=== PATIENT | female | born 1970 | race Two or more races ===

== ENCOUNTER 2019-06-12 08:12 | Emergency (ER) | payer OTHER ==
[~2019-06-12] VITALS: Ht 162.6 cm; Wt 80.5 kg
--- NOTE | 2019-06-12 10:26 | NUR ---
pt resting comfortably in room. lab in room now.
[2019-06-12 10:31] LABS: BASOPHILS # (AUTO) 0.02 x10^3/uL (0-0.1); BASOPHILS % (AUTO) 0 % (0-1); EOSINOPHILS # (AUTO) 0.04 x10^3/uL (0-0.4); EOSINOPHILS % (AUTO) 1 % (1-7); LYMPHOCYTES # (AUTO) 1.08 x10^3/uL (1-3.4); LYMPHOCYTES % (AUTO) 15 % (22-44); MD NO; MEAN CORPUSCULAR HEMOGLOBIN 27.2 pg (27.0-34.8); MEAN CORPUSCULAR HGB CONC 32.7 g/dL (32.4-35.8); MEAN CORPUSCULAR VOLUME 83.1 fL (80-100); MONOCYTES # (AUTO) 0.42 x10^3/uL (0.2-0.8); MONOCYTES % (AUTO) 6 % (2-9); NEUTROPHILS # (AUTO) 5.48 x10^3/uL (1.8-6.8); NEUTROPHILS % (AUTO) 78 % (42-75); PLATELET COUNT 293 x10^3/uL (130-400); RED BLOOD COUNT 3.78 x10^6/uL (3.82-5.3); RED CELL DISTRIBUTION WIDTH 15.7 % (9.6-15.2)
--- NOTE | 2019-06-12 10:32 | NUR ---
poc is orthostatic bps
--- NOTE | 2019-06-12 10:33 | NUR ---
pt up to restroom. ambulates with a steady gait.
[2019-06-12 10:42] LABS: ALANINE AMINOTRANSFERASE 18 U/L (12-78); ALBUMIN 3.2 g/dL (3.4-5.0); ANION GAP 8 mmol/L (5-15); CALCIUM 8.2 mg/dL (8.5-10.1); CHLORIDE 104 mmol/L (98-107)
[2019-06-12 10:47] LABS: ALKALINE PHOSPHATASE 91 U/L (45-117); BILIRUBIN,TOTAL 0.4 mg/dL (0.2-1.0)
--- NOTE | 2019-06-12 11:07 | NUR ---
RECEIVED REPORT FROM JOSE MOTA, ASSUMED CARE. IV PLACE AND FLUIDS STARTED PER MD VERBAL ORDER
[2019-06-12] MEDS ORDERED: SODIUM CHLORIDE 0.9% 1,000ML IVBOLUS ONE (11:30)
[2019-06-12] MEDS ORDERED: SODIUM CHLORIDE FLUSH 10ML SYR IVF ONE (11:30)
--- NOTE | 2019-06-12 11:53 | NUR ---
FLUIDS COMPLETE. AWAITING RECHECK AT THIS TIME
[2019-06-12 11:54] VITALS: BP 145/83
[2019-06-12 13:49] LABS: INTERNATIONAL NORMALIZED RATIO 0.99 (0.93-1.1); PROTHROMBIN TIME 10.5 Seconds (9.6-11.5)
== END 2019-06-12 12:50 | disposition home or self-care (01) ==
LOC: ED 12:44
DX: N92.4 Excessive bleeding in the premenopausal period (principal); N92.1 Excessive and frequent menstruation with irregular cycle; R42 Dizziness and giddiness
CPT/HCPCS: 36415; 76830; 80053; 84703; 85025; 85610; 96360; 99284; J7030

== ENCOUNTER 2019-06-13 09:10 | Emergency (ER) | payer OTHER ==
[~2019-06-13] VITALS: Ht 162.6 cm; Wt 79.6 kg
--- NOTE | 2019-06-13 10:16 | NUR ---
RENT AND MISCELLANEOUS REMITTANCE CLERK: PT TO ROOM FROM LOBBY
[2019-06-13 10:41] LABS: BASOPHILS # (AUTO) 0.02 x10^3/uL (0-0.1); BASOPHILS % (AUTO) 0 % (0-1); EOSINOPHILS # (AUTO) 0.04 x10^3/uL (0-0.4); EOSINOPHILS % (AUTO) 0 % (1-7); LYMPHOCYTES % (AUTO) 16 % (22-44); MD NO; MEAN CORPUSCULAR HGB CONC 32.2 g/dL (32.4-35.8); MEAN CORPUSCULAR VOLUME 83.8 fL (80-100); MEAN PLATELET VOLUME 8.3 fL (7.4-10.4); MONOCYTES # (AUTO) 0.43 x10^3/uL (0.2-0.8); MONOCYTES % (AUTO) 5 % (2-9); NEUTROPHILS # (AUTO) 6.93 x10^3/uL (1.8-6.8); NEUTROPHILS % (AUTO) 79 % (42-75); PLATELET COUNT 315 x10^3/uL (130-400); RED BLOOD COUNT 3.88 x10^6/uL (3.82-5.3)
[2019-06-13 10:42] LABS: ALBUMIN 3.8 g/dL (3.4-5.0); ANION GAP 8 mmol/L (5-15); CALCIUM 8.9 mg/dL (8.5-10.1); CHLORIDE 104 mmol/L (98-107); CREATININE 0.89 mg/dL (0.55-1.02)
[2019-06-13] MEDS ORDERED: SODIUM CHLORIDE 0.9% 1,000ML IVBOLUS ONE (11:30)
[2019-06-13] MEDS ORDERED: SODIUM CHLORIDE FLUSH 10ML SYR IVF ONE (11:30)
[2019-06-13 12:22] VITALS: BP 101/69
[2019-06-13] MEDS ORDERED: ALBUTEROL SULFATE 2.5 MG/3 ML ONE (12:40)
--- NOTE | 2019-06-13 14:11 | NUR ---
PT UP TO RESTROOM AND BACK WITHOUT ANY ISSUE. STATES SHE FEELS SOMEWHAT BETTER. DENIES ANY NEEDS OR CONCERNS, CALL LIGHT IN REACH.
--- NOTE | 2019-06-13 15:01 | NUR ---
REPORT RECEIVED FROM [place] MOTA.
== END 2019-06-13 15:27 | disposition home or self-care (01) ==
LOC: ED 12:48
DX: R55 Syncope and collapse (principal); R53.1 Weakness; R51 Headache; R42 Dizziness and giddiness; N93.9 Abnormal uterine and vaginal bleeding, unspecified
CPT/HCPCS: 36415; 80048; 82040; 85025; 93005; 96360; 99284; J7030